=== PATIENT | female | born 1970 | race Caucasian/White ===

== ENCOUNTER 2020-09-17 13:40 | Outpatient (CLI) | payer BC ==
--- NOTE | 2020-09-17 15:13 | MRI ---
MRI OF THE RIGHT KNEE: DATE: 09/17/2020. PROVIDED CLINICAL HISTORY: Right knee pain. FINDINGS: The anterior cruciate ligament, posterior cruciate ligament, medial collateral ligament, and lateral collateral ligamentous complex demonstrate an intact MR appearance, as does the extensor mechanism. The medial and lateral menisci demonstrate no definite evidence for tear. There is extensive full-thickness articular cartilage loss involving the median ridge and lateral fac et of the patella with conspicuous marrow edema and cyst-like change involving the patella. Articula r cartilage loss involving the central weightbearing portions of the medial femorotibial joint is als o suspected. There is a moderate knee joint effusion with Sanches's cyst. There is increased signal intensity on fl uid-sensitive sequences within the proximal soleus muscle and could be on the basis of fluid extensio n from the popliteal hiatus or could reflect muscular strain. No focal concerning regional marrow or muscular signal abnormality. Osteophyte formation is seen abo ut the knee. IMPRESSION: 1. Advanced patellar chondrosis. 2. Moderate knee joint effusion with Sanches's cyst formation. POS: AH
== END 2020-09-17 13:41 | disposition home or self-care (01) ==
LOC: SCSMRI 13:40
PROVIDERS: ATTEND Orthopaedic Surgery
DX: S83.281A Other tear of lateral meniscus, current injury, right knee, initial encounter (principal); M25.461 Effusion, right knee; M71.21 Synovial cyst of popliteal space [Baker], right knee